=== PATIENT | female | born 1975 | race Caucasian/White ===

== ENCOUNTER 2018-09-24 20:07 | Emergency (ER) | payer OTHER ==
[2018-09-24 20:20] VITALS: BP 124/103
--- NOTE | 2018-09-24 21:52 | XRAY Report ---
Reason: fell down stairs, pain Procedure Date: 09/24/2018 Accession Number: [id number] / [id number] Procedure: XR - Ankle 3 View LT CPT Code: FULL RESULT: EXAM: LEFT ANKLE RADIOGRAPHY. EXAM DATE: 09/24/2018 08:58 PM. CLINICAL HISTORY: Fell down stairs, pain. COMPARISON: None. TECHNIQUE: 3 views. FINDINGS: Bones: 4 x 7 mm and a 2 mm well corticated calcifications medial to the tip of the lateral malleolus. No acute trabecular or cortical disruption. 4 x 9 mm osteochondral defect with central tiny fragment. Joints: Tiny loose body. No effusion. No subluxations. The ankle mortise is normally aligned. Soft Tissues: Moderate edema over the lateral malleolus. IMPRESSION: 1. Several old avulsion fractures lateral malleolus. 2. No acute bony abnormality. 3. Osteochondral disease medial wall talar dome. RADIA
--- NOTE | 2018-09-24 21:54 | XRAY Report ---
Reason: fell down stairs Procedure Date: 09/24/2018 Accession Number: [id number] / [id number] Procedure: XR - Foot 3 View LT CPT Code: FULL RESULT: EXAM: LEFT FOOT RADIOGRAPHY. EXAM DATE: 09/24/2018 08:58 PM. CLINICAL HISTORY: Fell down stairs. Lateral foot pain. COMPARISON: None. TECHNIQUE: 3 views. FINDINGS: Bones: 1 x 4 mm linear calcification dorsal to the navicular without adjacent edema consistent with old avulsion fracture or calcific tendinitis. Trabecular and cortical patterns are intact. Joints: Normal. No subluxations. Soft Tissues: Normal. No soft tissue swelling. IMPRESSION: No acute bony abnormality. RADIA
[2018-09-24] MEDS ORDERED: NAPROXEN 250 MG TABLET PO STA (22:33)
--- NOTE | 2018-09-24 22:35 | ED Physician Documentation ---
PD HPI LOWER EXT INJURY - Stated complaint Stated Complaint: ANKLE INJURY - Chief complaint Chief Complaint: Ext Problem - History obtained from History obtained from: Patient - History of Present Illness PD HPI LOW EXT INJURY LOCATION: Left, Ankle, Foot Type of injury: Twist Where injury occurred: Other (fell down three stairs) Timing - details: Abrupt onset Severity Comments: moderate Improved by: Rest, Ice, Immobilization Worsened by: Moving, Palpating Associated symptoms: Swelling Contributing factors: Other (h/o prior ankle strains). No: Anticoagulated Recently seen: Not recently seen Review of Systems Constitutional: denies: Fever Cardiac: denies: Chest pain / pressure GI: denies: Abdominal Pain Musculoskeletal: reports: Extremity pain, Joint swelling. denies: Neck pain, Back pain Neurologic: denies: Head injury PD PAST MEDICAL HISTORY - Past Medical History Past Medical History: No - Past Surgical History Past Surgical History: No - Present Medications Home Medications: Ambulatory Orders Medication Instructions Recorded Confirmed No Known Home Medications 09/24/18 09/24/18 - Allergies Allergies/Adverse Reactions: Allergies Allergy/AdvReac Type Severity Reaction Status Date / Time No Known Drug Allergies Allergy Verified 09/24/18 20:19 - Social History Does the pt smoke?: No Smoking Status: Never smoker Does the pt drink ETOH?: No Does the pt have substance abuse?: No - Immunizations Immunizations are current?: Yes PD ED PE NORMAL - General General: Alert and oriented X 3, No acute distress - HEENT HEENT: Atraumatic, PERRL, EOMI - Derm Derm: Normal color - Extremities Extremities: No deformity. No: No tenderness to palpate, Normal ROM s pain (The patient has tenderness to palpation of the ankle and foot, there is a normal dorsalis pedis pulse. There is mild swelling. There is no pain in the proximal fibular head. No crepitus or obvious deformity. Normal sensation light touch) - Neuro Neuro: Alert and oriented X 3, Normal speech Results - Vitals Vitals: Vital Signs - 24 hr 09/24/18 20:16 Temperature 36.4 C L Heart Rate 105 H Respiratory 18 Rate Blood Pressure 124/103 H O2 Saturation 100 Oxygen O2 Source Room air - Rads (name of study) Ankle/Foot XR Radiology: Final report received (IMPRESSION: No acute bony abnormality. IMPRESSION: 1. Several old avulsion fractures lateral malleolus. 2. No acute bony abnormality. 3. Osteochondral disease medial wall talar dome) PD MEDICAL DECISION MAKING - ED course ED course: No acute fracture seen on the x-ray. The patient appears appropriate for discharge with a crutch and an air splint. I discussed warning signs and recommended returning to the emergency department immediately for any worsening or any concerns. Departure - Departure Disposition: 01 Home, Self Care Condition: Good Instructions: Ankle Sprain Follow-Up: [facility] [Provider Group] - As Needed (Please follow-up with orthopedics if your symptoms are not improving.Please call to schedule an appointment) Comments: Please return to the emergency department for worsening symptoms or any concerns
== END 2018-09-24 22:52 | disposition home or self-care (01) ==
LOC: ED 20:07
DX: S93.401A Sprain of unspecified ligament of right ankle, initial encounter (principal); W10.9XXA Fall (on) (from) unspecified stairs and steps, initial encounter
CPT/HCPCS: 73610; 73630; 99283; A9270